=== PATIENT | female | born 1975 | race Caucasian/White ===

== ENCOUNTER 2016-11-08 19:55 | Observation (INO) | payer BC, SELFPAY ==
[~2016-11-08] VITALS: Ht 160 cm; Wt 91.0 kg
--- NOTE | ~2016-11-08 | ER ---
[facility]GE[facility] 41 Y [address] ROOM: [place] [address] LOCATION: [facility] [place] ADMIT DATE: 11/09/2016 ER/Outpatient Report DISCHARGE DATE: FAMILY PHYSICIAN: Anna Mcintosh MD ATTENDING PHYSICIAN: Anna Mcintsoh Time Of Arrival: 5 hours. Time Of evaluation: 2006 hours. CHIEF COMPLAINT: Abdominal pain. HISTORY OF PRESENT ILLNESS: The patient is a 41-year-old female who presents to the emergency department today with chief complaint of abdominal pain. She reports it started about 6 hours prior to arrival. She is having nausea and vomiting x3 as well as 2 episodes of diarrhea today. She denies any fevers. Does report some chills. No constipation. Denies any urinary frequency, urgency, or painful urination. No blood in her stool. No dark tarry stools. It is primarily in the left lower quadrant. It is currently 6/10 in severity. The patient has been worked up recently for extremity weakness. She has undergone an MRI of her neck as well as an MRI of her brain. She has not had the results back from the MRI of the brain yet. This is performed by a neurologist in [place]. PAST MEDICAL HISTORY: Hypertension, thyroid disorder, dyslipidemia. PAST SURGICAL HISTORY: Right knee, shoulder, left arm carpal tunnel. SOCIAL HISTORY: The patient denies any tobacco, alcohol, or illicit drug use. ALLERGIES: PENICILLIN AND STERI-STRIPS. MEDICATIONS: Please see list. PRIMARY CARE DOCTOR: Dr. Mcintosh. REVIEW OF SYSTEMS: All systems are reviewed by myself and negative with the exception of those discussed in HPI and past medical history. [facility] AGE: 41 Y [address] ROOM: [address] [address] LOCATION: [facility] [place] ADMIT DATE: 11/09/2016 ER/Outpatient Report DISCHARGE DATE: FAMILY PHYSICIAN: Anna Mcintosh MD ATTENDING PHYSICIAN: Anna Mcintosh PHYSICAL EXAMINATION: VITAL SIGNS: Blood pressure 157/78, pulse 73, respiratory rate 20, temperature 100.6, oxygen saturation 93% on room air. GENERAL: The patient is 41-year-old female, appears stated age, obese. HEENT: Normocephalic, atraumatic. Pupils are equal, round, and reactive to light. Nares are patent bilaterally. Mucous membranes are moist. NECK: Supple. There is no nuchal rigidity. CARDIOVASCULAR: Regular rate and rhythm. No murmurs, rubs, or gallops. LUNGS: Clear to auscultation bilaterally. No wheezes, rales, or rhonchi. ABDOMEN: Soft with [id number] tenderness to palpation in left lower quadrant and suprapubic. There is no rebound, rigidity, or guarding. Positive bowel sounds. MUSCULOSKELETAL: The patient moves all 4 extremities. Transfers and ambulates with assist. SKIN: Sweaty. No rashes or lesions are noted. LABORATORY DATA AND X-RAYS: Labs and x-rays are obtained. CT scans of the abdomen and pelvis with and without IV contrast were obtained. It is reviewed by Real radiologist showed normal. No acute process. EKG is obtained, is interpreted by myself at 0005 hours shows sinus rhythm with a rate 82, normal axis, normal interval. No ST elevation, ST depression, T-wave inversions are noted. CBC is normal. Coags normal. Urinalysis is unremarkable. Urine hCG is negative. Lactate is 2.8. CMP is unremarkable. LFTs normal. Troponin is normal. Lipase is normal. Procalcitonin 0.08. IMPRESSION: 1. Generalized weakness. 2. Near syncope. 3. Nausea vomiting. 4. Diarrhea. 5. Acute febrile illness. 6. Initial visit. EMERGENCY DEPARTMENT COURSE: The patient brought back to the examination room. Seen and evaluated by myself. IV is established. Laboratory analysis and imaging are obtained as described above. The patient was given 1 L of normal saline, 4 mg of Zofran, as well as 5 mg of morphine. She is given another liter of normal saline. She is given repeat doses of Zofran. The patient's labs and imaging are discussed with the patient and she would like to go home. She feels better. She is able to ambulate. I did write discharge instructions. The patient did wish to go home and was feeling better. Upon walking through the department attempting to leave, the patient became very weak and became diaphoretic. We PATIENT'S NAME: ANGEL ROSS [facility] AGE: 41 Y [address] ROOM: [address] [address] LOCATION: [facility] [place] ADMIT DATE: 11/09/2016 ER/Outpatient Report DISCHARGE DATE: FAMILY PHYSICIAN: Anna Mcintosh MD ATTENDING PHYSICIAN: Anna Mcintosh did bring the patient back into the ER cart and I strongly recommended admission and the patient initially refused, but with assistance from the patient's sister and as well as the nurse and myself, we were able to convince the patient that it is in her best interest to stay, and certainly as weak as the patient was and her near syncopal episode as well as her diaphoresis, I do feel she required admission in the hospital for further evaluation treatment and management. I did contact Dr. Cardozo with the patient's primary care doctor. He does agree to accept the patient for further evaluation, treatment, and management. The patient continues to be nauseated. She is given another liter of normal saline. She is given 10 mg of Compazine and 25 mg of Benadryl. DISPOSITION: The patient is admitted under the care of Dr. Cardozo in stable condition. DO GEMA BILLY/modl /[id number] d: 11/09/164 t: 11/09/16 192, OUTPATIENT REPORT
--- NOTE | ~2016-11-08 | HP ---
PATIENT'S NAME: ANGEL ROSS [facility] AGE: 41 Y [address] ROOM: [address] [place] [id number] [place] [facility] [place] DATE: 11/09/2016 History & Physical DISCHARGE DATE: FAMILY PHYSICIAN: Anna Mcintosh MD ATTENDING PHYSICIAN: Anna Mcintosh DATE OF SERVICE: CHIEF COMPLAINT: Nauseousness, vomiting, diarrhea, and abdominal pain. HISTORY OF PRESENT ILLNESS: The patient is a 41-year-old female, who has had a somewhat complicated course. She does report that about 1-1/2 to 2 weeks ago, she had a bad cold type infection with some fevers and that did settle down. She has been in the process of getting worked up through Dr. Martini and then through her neurologist in [place] for intermittent paresthesias and buzzing sensation in the arms and legs as well as her face associated with leg weakness. He has done a recent MRI of her head. She had an MRI of her cervical spine back in May. He has done thyroid B12 levels along with the MRI and is considering doing a repeat MRI of her neck if needed. They are also considering lumbar puncture to potentially rule out demyelinating disease. The patient had the onset for about 6 hours prior to arrival of nauseousness and vomiting as well as 2 episodes of diarrhea. She has had no recent fevers in the last day or two, but did have some chills and no constipation. Denies any urinary symptoms. Denies any bloody or black tarry stools. Her pain was mainly in the left lower quadrant. She was evaluated by the emergency room physician, but lab work was all essentially normal. CT scan of abdomen and pelvis is normal. They hydrated her and gave her Zofran. She was feeling better and wanted to go home, but when they got her up to help relieve, she became near syncopal and almost fell. They gave her more fluids, more Zofran; and it was just thought that we should go ahead and admit her. I know Dr. Dubon thought it was probably just a viral gastroenteritis on top of what has been going on. This morning, she does complain of a significant headache, but reports she had really no caffeine yesterday. She normally does drink a fair amount of caffeine. She also did not get her dose of metoprolol last night. PAST MEDICAL HISTORY: ALLERGIES: INCLUDE: 1. ADHESIVE TAPE. 2. CEPHALOSPORINS. 3. PENICILLIN. PATIENT'S NAME: JAYLA ROSSNA Piyush [facility] AGE: 41 Y [address] ROOM: [place] [address] [place] [facility] [place]: 11/09/2016 History & Physical DISCHARGE DATE: FAMILY PHYSICIAN: Anna Mcintosh MD ATTENDING PHYSICIAN: Anna Mcintosh CURRENT MEDICATIONS: Include: 1. Atorvastatin 40 mg daily. 2. Ibuprofen 600 mg every 8 hours. 3. Levothyroxine 100 mcg daily. 4. Metoprolol 25 mg usually at bedtime. Prescription is b.i.d. but she mainly just takes it at night. CHRONIC HEALTH PROBLEMS: Include: 1. History of mixed hyperlipidemia. 2. Hypothyroidism. 3. Mitral valve disorder. 4. History of previous neck surgery. 5. Headache paresthesia type issues that is being evaluated by Neurology. PREVIOUS SURGERIES: Include: 1. History of a stress test that was normal in 09/2015. 2. Previous carpal tunnel release 06/2014. 3. Hysterectomy in 2009. 4. Neck surgery 03/11/2016. 5. Stress echo that was normal in 04/2012. FAMILY HISTORY: Family history is remarkable for cancer in father and aunt. Aunt having history of breast cancer and skin. Father had lymphoma. There is diabetes in the mother. Maternal grandmother had a stroke. REVIEW OF SYSTEMS: HEENT: She does have a headache now. Ears, eyes, nose, and throat, otherwise, negative. LUNGS: Negative. CARDIOVASCULAR: Negative. GI: She is nauseous. She has had no diarrhea since yesterday; actually it was more in the late morning or early afternoon. She is still nauseated and does complain of some mild abdominal discomfort diffusely. : Negative. MUSCULOSKELETAL: Basically intermittent paresthesias in that. PHYSICAL EXAMINATION: GENERAL: Alert and ill-appearing female in no acute distress. She is afebrile. VITAL SIGNS: Stable. HEENT: Normal. PATIENT'S NAME: ANGEL ROSS [facility] AGE: 41 Y [address] ROOM: [place] [address] [place] [facility] [place]: 11/09/2016 History & Physical DISCHARGE DATE: FAMILY PHYSICIAN: Anna Mcintosh MD ATTENDING PHYSICIAN: Anna Mcintosh LUNGS: Clear. HEART: Regular rate and rhythm. ABDOMEN: Benign. Diffuse mild tenderness. No guarding or rebound. Moderately obese. EXTREMITIES: No cyanosis, clubbing, or edema. LABORATORY DATA: She did have a slightly elevated lactate at 2.8 last night. Her CK, CPK, and troponin I were negative. Her white count is normal at 7.7, hemoglobin 11.9, hematocrit 35, and platelet count 327 this morning. Glucose 137, BUN 16, creatinine 0.8, sodium 142, potassium 4.1, chloride 111, CO2 of 23, calcium 7.4, and EGFR is greater than 60. Her urinalysis overall looked negative. Lipase 116. CK-MB less than 0.5. Procalcitonin 0.08. We will go ahead and repeat those this morning. ASSESSMENT: 1. Nauseousness, vomiting, and diarrhea which I think is probably secondary to a viral gastroenteritis. 2. Headache which could be a combination of her chronic health problem that is being worked up along with lack of caffeine and lack of her metoprolol. PLAN: We will continue IV hydration. We will work on getting the patient up to try to get some of her medications restarted and see if we can get her feeling better here later today and potentially home, which she is able to ambulate on her own. MD SILVANA VARMA/david /[id number] D: [id number] T: 111 HISTORY & PHYSICAL
[~2016-11-08 19:55] MED LIST: DILAUDID 2MG(HYD2 MG PO; IBUPROFEN800 MG PO; LEVOTHROID (S100 MCG PO; LIPITOR40 MG PO; LOPRESSOR25 MG PO; NUCYNTA50 MG PO; SOMA350 MG PO; TYLENOL EXTRA500 MG PO
[2016-11-08 20:25] LABS: BASOPHIL % 0.2 %; EOSINOPHIL % 0.4 %; HEMATOCRIT 42.6 % (33.0-46.0); HEMOGLOBIN 14.5 g/dL (10.0-15.0); IMMATURE GRANULOCYTE % 0.2 %; LYMPHOCYTE # 0.5 K/uL (0.8-4.0); LYMPHOCYTE % 5.7 %; MCH 29.9 pg (27.0-34.0); MCV 87.8 fl (83.0-98.0); MONOCYTE # 0.4 K/uL (0.0-1.0); MONOCYTE % 4.3 %; MPV 9.4 fl (9.4-12.4); NEUTROPHIL # (ANC) 8.5 K/uL (1.8-7.8); NEUTROPHIL % 89.2 %; NRBC % 0 /100WBC (0-0.00); PLATELET COUNT 384 K/uL (150-450); RBC 4.85 M/uL (3.50-5.50); RDW-CV 12.1 % (11.9-14.6); WBC 9.5 K/uL (4.0-11.0)
[2016-11-08 20:33] LABS: INR - (THERAPEUTIC) 1.03 (0.92-1.07); PROTIME 10.8 SECONDS (9.8-11.4); PTT 22 SECONDS (25-32)
[2016-11-08 20:46] LABS: ALBUMIN 3.4 gm/dL (3.5-5.0); ALK PHOS 73 IU/L (33-138); ALT 32 IU/L (12-78); ANION GAP 15.1 (10.0-19.0); AST 24 IU/L (10-40); BLOOD UREA NITROGEN 19 mg/dL (6-24); CALCIUM 8.5 mg/dL (8.5-10.5); CHLORIDE 109 mMol/L (96-110); CO2 20 mMol/L (22-32); CPK 65 IU/L (21-215); ESTIMATED GFR (MDRD EQUATION) > 60; POTASSIUM 4.1 mMol/L (3.7-5.1); SODIUM 140 mMol/L (135-145); TOTAL BILIRUBIN 0.4 mg/dL (0.0-1.5); TOTAL PROTEIN 7.3 g/dL (6.0-8.4)
[2016-11-08 20:52] LABS: BLOOD URINE NEGATIVE /UL (NEGATIVE); GLUCOSE URINE NEGATIVE (NEGATIVE); KETONE URINE 5 mg/dL (NEGATIVE); LEUKOCYTES URINE 25 /UL (NEGATIVE); NITRITE URINE NEGATIVE (NEGATIVE); PROTEIN URINE 30 mg/dL (NEGATIVE); UROBILINOGEN URINE 1 mg/dL (NORMAL)
[2016-11-08 20:54] LABS: COLOR URINE AMBER (YELLOW); TURBIDITY URINE 1+ (CLEAR)
[2016-11-08 20:59] LABS: BACTERIA URINE FEW (NEGATIVE); RBC URINE NEGATIVE #/HPF (NEGATIVE); WBC URINE 0-2 #/HPF (NEGATIVE)
[2016-11-09 05:36] LABS: BASOPHIL % 0.1 %; HEMOGLOBIN 11.9 g/dL (10.0-15.0); IMMATURE GRANULOCYTE % 0.4 %; LYMPHOCYTE # 0.5 K/uL (0.8-4.0); LYMPHOCYTE % 6.7 %; MCH 29.8 pg (27.0-34.0); MCV 87.5 fl (83.0-98.0); MONOCYTE # 0.3 K/uL (0.0-1.0); MONOCYTE % 3.9 %; MPV 9.7 fl (9.4-12.4); NEUTROPHIL # (ANC) 6.8 K/uL (1.8-7.8); NEUTROPHIL % 88.9 %; NRBC % 0 /100WBC (0-0.00); PLATELET COUNT 327 K/uL (150-450); RDW-CV 12.3 % (11.9-14.6); WBC 7.7 K/uL (4.0-11.0)
[2016-11-09 05:50] LABS: ALBUMIN 2.7 gm/dL (3.5-5.0); ALK PHOS 53 IU/L (33-138); ALT 24 IU/L (12-78); ANION GAP 12.1 (10.0-19.0); AST 12 IU/L (10-40); BLOOD UREA NITROGEN 16 mg/dL (6-24); CHLORIDE 111 mMol/L (96-110); CO2 23 mMol/L (22-32); CREATININE 0.8 mg/dL (0.5-1.1); ESTIMATED GFR (MDRD EQUATION) > 60; POTASSIUM 4.1 mMol/L (3.7-5.1); SODIUM 142 mMol/L (135-145); TOTAL PROTEIN 5.7 g/dL (6.0-8.4)
[2016-11-09 05:51] LABS: CALCIUM 7.4 mg/dL (8.5-10.5); TOTAL BILIRUBIN 0.3 mg/dL (0.0-1.5)
[2016-11-09] MEDS ORDERED: ADVIL200 MG PO (08:21)
== END 2016-11-09 19:20 | disposition disaster alternative care site (69) ==
LOC: GMED 19:55 → GMSU 11-09 00:36
PROVIDERS: Emergency Medicine; ADMIT Obstetrics & Gynecology Obstetrics
DX: A08.4 Viral intestinal infection, unspecified (principal); R55 Syncope and collapse; E86.0 Dehydration; I05.9 Rheumatic mitral valve disease, unspecified; E78.2 Mixed hyperlipidemia; E03.9 Hypothyroidism, unspecified; R51 Headache; R53.1 Weakness; R50.9 Fever, unspecified; Z88.0 Allergy status to penicillin; Z88.1 Allergy status to other antibiotic agents; Z79.899 Other long term (current) drug therapy; Z90.710 Acquired absence of both cervix and uterus; Z98.890 Other specified postprocedural states
CPT/HCPCS: G0378; J0780; J1200; J2270; J2405; J3480; J7030; Q9967

== ENCOUNTER → 2016-12-10 | Outpatient (CLI) | payer BC, SELFPAY ==
[~2016-12-10] MED LIST changes: +ADVIL200 MG PO
== END | disposition disaster alternative care site (69) ==
LOC: GPOC 12-09 16:00 → GRAD 13:41 → GPOC 14:00 → GRAD 14:00 → GPOC 16:00
PROC: 0Q903ZZ Drainage of Lumbar Vertebra, Percutaneous Approach (ICD-10-PCS; principal; 2016-12-10)
DX: R20.9 Unspecified disturbances of skin sensation (principal)

== ENCOUNTER → 2017-01-01 | Outpatient (CLI) | payer BC ==
--- NOTE | ~2017-01-01 | ECHO ---
Transthoracic Echocardiography Report (TTE) Demographics Patient Name ANGEL ROSS Date of Study 01/01/2017 Patient Number [id number] Visit Number [id number] Date of 1975 Room Number Accession Number [id number] Gender Female Age 41 year(s) Referring Gerson Pickens MD Ct Scan Technologist Physician Physician Interpreting Gerson Pickens MD Manager Lighting Physician Supervising Ordering Physician Getachew Parson MD/HUMPHREY GAVIN Nurse Stress Process Chemist Conclusions Contractility Score Summary Normal Left Ventricular contractility was noted. Summary The estimated left ventricular ejection fraction is 60-65%. IVC measures 1.0 cm with inspiratory collapse. Bubble images are 12-19. Trivial mitral regurgitation by color Doppler. The aortic valve was not well imaged. Procedure Type of Study TTE procedure:Echo with Contrast. Procedure Date Date: 01/01/2017 Start: 01:17 PM Study Location: Echo Lab Technical Quality: Adequate visualization Indications:TIA. Appropriate Use Criteria: 9 Patient Status: Routine HR: 69 bpm BP: 144/86 mmHg M-Mode/2D Measurements LV Diastolic Dimension: 3.61 cm LV Systolic Dimension: 2.17 cm LV Septum Diastolic: 0.92 cm LV PW Diastolic: 1.04 cm AO Root Dimension: 2.1 cm Cardiac Output: 3.81 l/min AV Cusp Separation: 1.2 cm RV Diastolic Dimension: 1.93 cm LVOT: 1.9 cm LVOT VTI: 19.5 cm RV Base: 2.26 cm LV Stroke volume: 55.26 ml RV Length: 6.3 cm TAPSE: 1.69 cm TDI-S': 14.9 cm/s Doppler Measurements AV Peak Velocity: 1.52 m/s MV Peak E-Wave: 0.72 m/s AV Peak Gradient: 9.24 mmHg MV Peak A-Wave: 0.45 m/s AV Mean Gradient: 4 mmHg MV E/A Ratio: 1.61 LVOT Peak Velocity: 0.92 m/s MV P1/2t: 60 msec PV Peak Velocity: 1.31 m/s E' Septal Velocity: 0.11 m/s PV Peak Gradient: 6.86 mmHg E' Lateral Velocity: 0.17 m/s A' Septal Velocity: 0.07 m/s A' Lateral Velocity: 0.11 m/s Findings Left Ventricle Normal left ventricle size and function. Right Ventricle Normal right ventricle structure and function. Left Atrium Normal left atrial size. Right Atrium IVC measures 1.0 cm with inspiratory collapse. Bubble images are 12-19. NEGATIVE BUBBLE STUDY Mitral Valve Trivial mitral regurgitation by color Doppler. Aortic Valve The aortic valve was not well imaged. Tricuspid Valve Normal tricuspid valve structure and function. Pulmonic Valve Normal pulmonic valve structure and function. Pericardial Effusion No evidence of pericardial effusion. Miscellaneous Visualized portions of the aortic root and ascending aorta appear normal in size. Pleural Effusion No evidence of pleural effusion. Contractility Score LV regional wall motion:(0-Non visualized 1-Normal 2-Hypokinesis 3-Akinesis 4-Dyskinesis 5-Aneurysm) Signature dtt: Celio Nieto (cardio) dtd: 01/01/17 [id number] Physician Self Edit
[2017-01-01 13:04] LABS: CREATININE 0.8 mg/dL (0.5-1.1); ESTIMATED GFR (MDRD EQUATION) > 60
== END | disposition disaster alternative care site (69) ==
LOC: GOPD 12-31
PROVIDERS: Psychiatry & Neurology Neurology
DX: M54.2 Cervicalgia (principal); G89.29 Other chronic pain; M62.81 Muscle weakness (generalized); I34.0 Nonrheumatic mitral (valve) insufficiency; R20.8 Other disturbances of skin sensation; R20.2 Paresthesia of skin
CPT/HCPCS: C8929